=== PATIENT | female | born 2000 | race Caucasian/White ===

== ENCOUNTER 2021-05-02 07:54 | Emergency (ER) | payer SELFPAY ==
[2021-05-02 08:00] VITALS: BP 115/66; PULSE 69; RESP 18; O2SAT 96
--- NOTE | 2021-05-02 08:41 | ED.HEATRA ---
HPI - Head Injury General Chief complaint: Head Injury Stated complaint: HI Time Seen by Provider: 05/02/21 08:28 Source: patient History of Present Illness HPI Narrative: Patient presents after a head injury. Reports injury occurred approximately 2 to 2-1/2 hours ago. It was a box of so fell on the top of her head. She felt a little lightheaded but she denies any loss of consciousness she denies falling to the ground. She continued to work but felt a little lightheaded she was concerned so came to the ER for evaluation. She also reports associated neck pain. Her primary area of pain is on the top of her head that is achy, constant, worse with palpation, no radiation. She denies any changes in vision, hearing she denies any focal numbness or weakness. She denies use of blood thinners. Related Data Allergies Allergy/AdvReac Type Severity Reaction Status Date / Time No Known Allergies Allergy Unverified 09/04/18 14:53 Review of Systems Review of Systems: CONSTITUTIONAL: Denies fever, chills, or sweats. EYES: Denies visual changes, redness, or discharge. ENT: Denies rhinorrhea, congestion, sore throat, or otalgia. CARDIOVASCULAR: Denies chest pain, palpitations, or edema. RESPIRATORY: Denies cough or dyspnea. GASTROINTESTINAL: Denies abdominal pain, nausea, vomiting, or diarrhea. GENITOURINARY: Denies dysuria or hematuria. SKIN: Denies rash or itching. MUSCULOSKELETAL: Denies back pain, joint pain, or myalgia. NEUROLOGIC: Denies numbness, dizziness, or weakness. PSYCHIATRIC: Denies anxiety or depression. All systems reviewed & are unremarkable except as noted in HPI and below Exam Narrative: GENERAL: Well-appearing, well-nourished, and in no acute distress. HEAD: Normocephalic, atraumatic, no edema. EYES: PERRLA and EOMI. ENT: Nares clear, no rhinorrhea or epistaxis. Mucous membranes moist. No dental fracture NECK: Supple. No masses. No midline neck pain EXTREMITIES: Normal range of motion. No edema. SKIN: Warm, dry, no rash. NEURO: Nerves II through XII are intact patient has 5 out of 5 strength in all extremities sensation intact to light touch in all extremities alert and oriented x3. PSYCH: Normal mood and affect. Course Vital Signs Vital signs: Vital Signs Pulse Rate 69 05/02/21 08:00 Respiratory Rate 18 05/02/21 08:00 Blood Pressure 115/66 05/02/21 08:00 Pulse Oximetry 96 05/02/21 08:00 Pulse Rate 69 05/02/21 08:00 Respiratory Rate 18 05/02/21 08:00 Blood Pressure 115/66 05/02/21 08:00 Pulse Oximetry 96 05/02/21 08:00 MDM - Head Injury MDM Narrative Medical decision making narrative: H&P as above, vss, pt looks clinically well, exam without focal neurological deficits,labs/img considered, symptomatic relief available as needed, on reevaluation pt continues to looks clinically well. Suspect mild concussion, dns intracranial hemorrhage, fracture, cord compromise. plan to tx/monitor as op w/ pcm f/u findings/plan discussed with pt, pt agree/comfortable with plan, return precautions given Discharge Plan Discharge Clinical Impression: Concussion Qualifiers: Encounter type: initial encounter Loss of consciousness presence/duration: without LOC Qualified Code(s): S06.0X0A - Concussion without loss of consciousness, initial encounter Headache Qualifiers: Headache type: unspecified Headache chronicity pattern: unspecified pattern Intractability: not intractable Qualified Code(s): R51.9 - Headache, unspecified Patient Disposition: Home, Self-Care Condition: Improved Instructions: Antibiotic Form, Concussion (ED), Post Concussion Syndrome (ED) Additional Instructions: Please return if your symptoms worsen or fail to improve. If you develop a fever, can not eat/drink anything or if you have any other concerns. Follow-up/Referrals: PHYSICIAN,DIETICIAN [Primary Care Provider] - Time of Disposition: 08:44
== END 2021-05-02 09:01 | disposition home or self-care (01) ==
PROVIDERS: Emergency Provider Emergency Medicine
DX: S06.0X0A Concussion without loss of consciousness, initial encounter (principal); W22.8XXA Striking against or struck by other objects, initial encounter
CPT/HCPCS: 99283

== ENCOUNTER 2021-10-21 09:22 | Emergency (ER) | payer OTHER, SELFPAY ==
--- NOTE | 2021-10-21 09:24 | ED.NAVMDI ---
HPI - Nausea/Vomiting/Diarrhea General Chief complaint: Abdominal Pain Stated complaint: abdom pain nause Time Seen by Provider: 10/21/21 09:24 Source: patient, family and RN notes reviewed History of Present Illness HPI Narrative: Patient is a 20-year-old female who presents the urgent care with her grandmother with complaints of lower right abdominal pain with nausea. Patient states that started at 730 this morning and she forced herself to vomit assuming it may have been something she ate . Patient states that the last time she had the symptoms it was related to a urinary tract infection. Patient denies of any frequent urinary tract infections. Denies of any urinary symptoms such as requested, dysuria urgency. States that her last menstrual cycle was 1 week ago and denies of any history of ovarian cysts. No other acute complaints. No acute distress noted. Patient aware of the plan of care. Some parts of this dictation were generated by voice recognition software and may contain typographical and/or grammatical inaccuracies. Related Data Home Medications Medication Instructions Recorded Confirmed desvenlafaxine 50 mg PO DAILY 10/21/21 10/21/21 Allergies Allergy/AdvReac Type Severity Reaction Status Date / Time No Known Allergies Allergy Verified 10/21/21 09:31 Review of Systems Review of Systems: CONSTITUTIONAL: Denies fever, chills, or sweats. EYES: Denies visual changes, redness, or discharge. ENT: Denies rhinorrhea, congestion, sore throat, or otalgia. CARDIOVASCULAR: Denies chest pain, palpitations, or edema. RESPIRATORY: Denies cough or dyspnea. GASTROINTESTINAL: Reports of lower right abdominal disc with nausea and one episode of vomiting GENITOURINARY: Denies dysuria or hematuria. SKIN: Denies rash or itching. MUSCULOSKELETAL: Denies back pain, joint pain, or myalgia. NEUROLOGIC: Denies headache, numbness, or weakness. All other systems reviewed are negative, except as documented in HPI. PMFSH Comments At the time of my signature, I reviewed and agree with the nursing past medical, surgical, social, and family history. There is no relevant family history pertinent to the patient complaint. Exam Narrative: GENERAL: This is a well-nourished, well-developed patient, in no apparent distress. HEAD: normocephalic, atraumatic. EYES: PERRL. Sclera clear/white. Vision is grossly intact. EARS: External ears normal NOSE: External nose normal with no obvious nasal discharge, nares without redness, no rhinorrhea. THROAT: Mucous membranes moist NECK: Neck supple CARDIOVASCULAR: Regular rate and rhythm without murmurs, gallops, or rubs. RESPIRATORY: Clear to auscultation. Breath sounds equal bilaterally. No wheezes, rales, or rhonchi. GASTROINTESTINAL: Abdomen soft, moderate diffuse lower abdominal tenderness more intense to the right, nondistended. Bowel sounds are hypoactive. SKIN: warm, intact with no suspicious lesions or rash, good texture and turgor. NEURO: awake, alert, and oriented to person, place and time. There were no obvious focal neurologic abnormalities. EXTREMITIES: No clubbing, cyanosis, or edema. BACK: Negative bilateral CVA tenderness Course Course Level of Care: Express Care Visit Vital Signs Vital signs: Vital Signs Temperature 98.7 F 10/21/21 09:30 Pulse Rate 76 10/21/21 09:30 Respiratory Rate 16 10/21/21 09:30 Blood Pressure 140/71 10/21/21 09:30 Pulse Oximetry 100 10/21/21 09:30 Temperature 98.7 F 10/21/21 09:30 Pulse Rate 76 10/21/21 09:30 Respiratory Rate 16 10/21/21 09:30 Blood Pressure 140/71 10/21/21 09:30 Pulse Oximetry 100 10/21/21 09:30 Reviewed Transfer Transfered to: [facility]: Other (Private car) Transfer rationale: Abdominal pain, nausea, vomiting Accepting physician: Dr. Amador [facility] - Nausea/Vomiting/Diarrhea [facility] Narrative Medical decision making narrative: Patient was unable to provide a urine sample. Advised the
[2021-10-21 09:30] VITALS: BP 140/71; PULSE 76; RESP 16; TEMP 37.1; O2SAT 100
== END 2021-10-21 10:00 | disposition short-term general hospital (02) ==
PROVIDERS: Emergency Provider Nurse Practitioner Family
DX: R10.31 Right lower quadrant pain (principal)
CPT/HCPCS: 99212; G0463

== ENCOUNTER 2021-10-21 10:44 | Day surgery (SDC) | payer OTHER, SELFPAY ==
[2021-10-21] VITALS (10 sets, daily range): BP systolic 105–132; BP diastolic 60–83; PULSE 81–123; RESP 16–24; TEMP 36.4–37.4; O2SAT 100
--- NOTE | ~2021-10-21 | CT_ITS ---
EXAMINATION: CT abdomen pelvis w con DATE: 10/21/2021 12:34 INDICATION: Right lower quadrant abdominal pain. TECHNIQUE: Computed tomography (CT) of the abdomen and pelvis was performed with 100 mL Omnipaque 350 intravenous contrast. Automated exposure control and iterative reconstruction technique were employe d. The dose-length product was 221.38 mGy-cm. COMPARISON: None. FINDINGS: The visualized portions of the lung bases are clear without pneumonia or pleural effusion. The heart size is normal. No pericardial effusion. The liver, gallbladder, spleen, pancreas, adrenal glands, and kidneys are normal. In the light right lower quadrant, there is wall thickening of loops of closely opposed small bowel with a network of fistulas between the small bowel, cecum, and appendi x. There is an appendicolith in the appendix, which is fluid-filled and dilated to 9 mm. There are no pathologically enlarged lymph nodes. There is no free intraperitoneal fluid. 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 IMPRESSION: 1. Wall thickening of distal small bowel with fistulas involving the small bowel, cecum, and appendix , likely Crohn disease. 2. Fluid-filled appendix measuring 9 mm with appendicolith, consistent with appendicitis, which may b e secondary to Crohn disease and/or luminal occlusion from the appendicolith. Reviewed, dictated and finalized at location A. IMPRESSION: 1. Wall thickening of distal small bowel with fistulas involving the small gallito l, cecum, and appendix, likely Crohn disease. 2. Fluid-filled appendix measuring 9 mm with appendicolith, consistent with william endicitis, which may be secondary to Crohn disease and/or luminal occlusion fro m the appendicolith.
--- NOTE | 2021-10-21 11:04 | ED.ABDPAIN ---
HPI - Abdominal Pain General Chief Complaint: Abdominal Pain <JEZ Corcoran Last Filed: 10/21/21 14:49> Stated Complaint: abd pain <JEZ Corcoran Last Filed: 10/21/21 14:49> Time Seen by Provider: 10/21/21 10:54 <JEZ Corcoran Last Filed: 10/21/21 14:49> History of Present Illness HPI narrative: 20-year-old healthy female here with some sharp, lower abdominal pain that came on today and has been progressing in nature since onset. The pain is associated with some anorexia, nausea and vomiting nonbloody, nonbilious emesis today. She states it began in her right lower quadrant and has since migrated over to her left lower quadrant. She states the pain is worse with movement, and states the car ride over here was difficult due to all the bumps in the road. She denies fevers, blood in her stool, dysuria, hematuria, vaginal bleeding, vaginal discharge. She is currently sexually active, and her last menstrual cycle was last week and was normal for her. Last bowel movement was this morning and it was nonbloody, although patient states she has had chronic issues with intermittent diarrhea and constipation for a while . Last p.o. intake at 930 today. <JEZ Corcoran Last Filed: 10/21/21 14:49> Related Data Home Medications: Home Medications Medication Instructions Recorded Confirmed desvenlafaxine 50 mg PO DAILY 10/21/21 10/21/21 norgestimate-ethinyl estradiol 1 tablet PO DAILY 10/21/21 10/21/21 <JEZ Corcoran Last Filed: 10/21/21 14:49> Allergies/Adverse Reactions: Allergies Allergy/AdvReac Type Severity Reaction Status Date / Time No Known Allergies Allergy Verified 10/21/21 14:29 <JEZ Corcoran Last Filed: 10/21/21 14:49> Review of Systems Review of Systems: Gen.: Denies fevers or chills Eyes: Denies eye pain or visual change ENT: Denies congestion Respiratory: Denies shortness of breath or cough CV: Denies chest pain or palpitations GI: Reports abdominal pain, nausea, vomiting. : denies burning, urgency, frequency or hematuria Musculoskeletal: Denies back pain or muscle pain Neuro: Denies numbness, tingling, weakness or focal weakness Skin: Denies rash Except as documented, all other systems reviewed and negative <Bushra Balbuena PA-C - Last Filed: 10/21/21 14:49> Exam Narrative: APPEARANCE: Well appearing, no pain in distress, well-nourished. Head normocephalic and atraumatic. EYES: PERRLA/EOMI, conjunctivae clear NOSE: No nasal drainage EARS: External ear normal in appearance THROAT: Oropharynx is clear. Mucous membranes are moist. NECK: Supple. No adenopathy, no masses. RESPIRATORY: Airway patent, respirations nonlabored. Clear to auscultation bilaterally, no rales, rhonchi, wheezing. CARDIOVASCULAR: Regular rate and rhythm without murmurs, rubs, or gallops. ABDOMINAL: Normoactive bowel sounds. Tender to palpation in right lower quadrant and left lower quadrant with some guarding. Soft, nondistended. No rebound tenderness. MUSCULOSKELETAL: Extremities are warm and well-perfused. Moves all extremities well. No edema. NEURO: Normal speech. No focal neurologic deficits. SKIN:: Skin is warm and dry. No rashes. PSYCHIATRIC: Normal affect/mood. <Bushra Balbuena PA-C - Last Filed: 10/21/21 14:49> Course ACCOUNTING TUTOR/PA Physician Supervision I did not see this patient but the care plan was discussed with me, labs and imaging reviewed. I agree with the documentation as above <Earl Amador MD - Last Filed: 10/21/21 15:04> Consultations Consultation #1: Dr. Patel, general surgery, will take patient to the OR today. Will start Zosyn in the ED. <Bushra Balbuena PA-C - Last Filed: 10/21/21 14:49> Date: 10/21/21 <Bushra Balbuena PA-C - Last Filed: 10/21/21 14:49> Time: 13:14 <Bushra Balbuena PA-C - Last Filed: 10/21/21 14:49> Vital Sig
[2021-10-21 11:20] LABS: Basophils Percent Auto 0.1 % (0.2-1.2); Hematocrit 39.2 % (37.0-47.0); Immature Granulocyte Absolute 0.04 K/mm3 (0.00-0.031); Immature Granulocyte Percent A 0.3 % (0-0.5); Lymphocytes Percent Auto 9.5 % (18.3-44.2); Mean Corpuscular HGB Conc 33.2 g/dl (32-36); Mean Corpuscular Hemoglobin 30.4 pg (26-34); Mean Corpuscular Volume 91.8 fl (80-100); Mean Platelet Volume 9.1 fl (7.4-10.4); Monocytes Absolute Auto 0.6 K/mm3 (0.1-0.6); Monocytes Percent Auto 4.8 % (2.6-8.5); Neutrophils Absolute Auto 10.7 K/mm3 (1.3-6.7); Neutrophils Percent Auto 85.3 % (45.5-73.1); Platelet Count Result 273 k/mm3 (150-375); Red Blood Count 4.27 M/mm3 (4.2-5.4); Red Cell Distribution Width 12.1 % (11.5-14.5); White Blood Count 12.6 K/mm3 (4.5-10.0)
[2021-10-21 11:30] LABS: Alanine Aminotransferase 17 U/L (4-35); Albumin Level 4.5 g/dL (3.5-5.1); Alkaline Phosphatase 45 U/L (38-126); Anion Gap 5 mmol/L (8-16); Aspartate Amino Transferase 26 U/L (14-36); Bilirubin,Total 1.4 mg/dL (0.2-1.3); Blood Urea Nitrogen 10 mg/dL (7-17); Calcium 8.2 mg/dL (8.4-10.2); Carbon Dioxide 27 mmol/L (22-30); Chloride 102 mmol/L (98-107); Estimated CRCL calculation 118 ml/min; Estimated Glomerular Filt Rate > 60; Glucose 103 mg/dL (65-110); Lipase 38 U/L (23-300); Potassium 3.6 mmol/L (3.4-5.0); Sodium 134 mmol/L (137-145)
[2021-10-21] MEDS: ONDANSETRON INJ 4 MG/2 ML VIAL IV PUSH (11:42)
[2021-10-21] MEDS: SODIUM CHLORIDE 0.9% IV 500 ML 999 ML IV CONT (11:47)
[2021-10-21 12:29] LABS: Add Urine Microscopic? YES; Appearance Urine Cloudy (Clear); Bacteria Urine Trace /hpf; Bilirubin Urine Negative (Negative); Blood Urine 1+ (Negative); Color Urine Yellow (Yellow); Glucose Urine UA Negative (Negative); Ketones Urine 1+ mg/dL (Negative); Leukocyte Esterase Ur 2+ LEU/UL (Negative); Mucus Urine Heavy /lpf; Nitrate Urine Positive (Negative); Protein Urine Negative (Negative); Specific Grav Ur 1.016 (1.001-1.035); Squamous Epithelial Cell Urine Many /hpf (Few); Urobilinogen Urine Negative mg/dL (<2.0); WBC Urine 51-75 /hpf
[2021-10-21] MEDS: PIPERACILLIN/TAZOBACTAM SOD 4.5 GM in SODIUM CHLORIDE 0.9% IV 100 ML 200 ML IVPB (13:36)
--- NOTE | 2021-10-21 14:19 | PM.IMHP ---
H&P: HPI History of Present Illness Date/Time: 10/21/21 14:19 Pt is a 20 y/o F presenting c severe RLQ abd pain since this am. Pt reports pain is sharp, constant and worse c movt. Pt reports assoc nausea, anorexia. Pt reports pain does radiate toward LLQ. Pt reports similar episodes in the past although much less severe. Chief Complaint: acute appendicitis Review of Systems Constitutional: Constitutional: Reports anorexia, Denies chills, Reports fatigue, Denies fever(s), Denies headache(s), Reports lethargy, Denies malaise, Denies night sweats, Reports poor appetite, Reports weakness, Denies weight gain and Denies weight loss Eyes: Eyes: Reports no additional eye complaints ENT: Reports system reviewed and no additional complaints, except as documented Cardiovascular: Cardiovascular: Reports no additional cardiovascular complaints Respiratory: Respiratory: Reports no additional respiratory complaints Gastrointestinal: Gastrointestinal: Reports as per HPI, Reports abdominal pain, Denies belching, Denies bloating, Reports constipation, Denies GI cramping, Denies dyspepsia, Reports nausea and Denies vomiting Genitourinary: Genitourinary: Reports no additional female genitourinary complaints Musculoskeletal: Musculoskeletal: Reports no additional musculoskeletal complaints Integumentary/Breasts: Skin/Breast: Reports system reviewed and no additional complaints, except as docu Neurologic: Reports system reviewed and no additional complaints, except as documented Psychiatric: Psychiatric: Reports no additional psychiatric complaints Endocrine: Endocrine: Reports no additional endocrine complaints Hematologic/Lymphatic: Hematologic/Lymphatic: Reports no additional hematologic/lymphatic complaints Allergic/Immunologic: Allergic/Immunologic: Reports no additional allergic/immunologic complaints PMFSH Comments PMH - UTI years ago Surgical history - none FH - no IBD, biliary dz SH - no tobacco Meds Home Medications and Allergies Home Medications Medication Instructions Recorded Confirmed Type desvenlafaxine 50 mg PO DAILY 10/21/21 10/21/21 History norgestimate-ethinyl estradiol 1 tablet PO DAILY 10/21/21 10/21/21 History Allergies Allergy/AdvReac Type Severity Reaction Status Date / Time No Known Allergies Allergy Verified 10/21/21 09:31 Vital Signs Vital Signs - 24 hr 10/21/21 10:53 Temperature 36.6 C Pulse Rate 92 Respiratory Rate 18 Blood Pressure 124/65 Pulse Oximetry 100 Exam Const: General: cooperative, healthy appearing, well developed, acute distress mild and uncomfortable Nutritional Appearance: average body habitus Orientation/consciousness: patient oriented x3 Limitations: no limitations HENMT: Head: normal to inspection, normocephalic and atraumatic Ears: hearing grossly normal bilaterally General nose exam: Normal external nose present Face and sinus: normal facial exam Mouth: Yes Normal oral and palatal mucosa present and Yes moist mucous membranes Throat: posterior oropharynx normal Eyes: General: appearance normal, both eyes and all related structures Pupils: Equal, round and reactive pupils present EOM: EOMs intact bilaterally Neck: Neck: normal visual inspection, full ROM and no lymphadenopathy Chest: Chest palpation & inspection: normal inspection of the chest Resp: Effort & Inspection: normal respiratory effort Auscultation: clear to auscultation bilaterally Cardio: Jugular venous distension: no JVD Rate: regular rate Rhythm: regular rhythm GI: Inspection: normal to inspection and distended GI Palp: Yes abdominal tenderness, Yes Soft to palpation, Yes Firmness to palpation present (GI), Yes Tenderness to palpation present (GI) and Yes Guarding due to palpation present (GI) Skin: General skin exam: normal color and no rashes or lesions noted Neuro: General: patient oriented x3 and CN's II-XI intact bilaterally Extrem: General: normal to inspection and full
--- NOTE | 2021-10-21 14:27 | WPDHPUPDATE1 ---
History and Physical Update Update Date/Time: 10/21/21 14:27 History and Physical has been reviewed, including an updated exam of the patient. There are NO changes in the patient's condition. Risks, benefits, and alternatives have been discussed and questions answered. Patient agrees to proceed with procedure.
[2021-10-21] MEDS: LACTATED RINGERS 1,000 ML 30 ML IV CONT ×2 (14:30→16:12)
[2021-10-21] MEDS: fentaNYL CITRATE INJ (*CRX) 100 MCG/2 ML VIAL 50 MCG IV PUSH (14:50)
--- NOTE | 2021-10-21 16:25 | P.OP_ITS ---
Procedure Note - Detailed Date of Procedure 10/21/21 Pre-op Diagnosis acute appendicitis Post-op Diagnosis Same Procedure Performed laparoscopic appendectomy Surgeon Tasha Patel MD Anesthesia General Indications 20-year-old female presenting to the emergency department with acute appendicitis Findings acute uncomplicated appendicitis Description of Procedure The patient was taken to the operating room and placed in the supine position. After adequate induction of general anesthesia, the patient was prepped and draped in the normal sterile fashion. A time-out was then done to verify the patient's identity, as well as the procedure being performed. I began by making a 5 mm incision in the infraumbilical region, through this a Veress needle was placed in the peritoneal cavity. CO2 gas was then insufflated and after adequate pneumoperitoneum was achieved the Veress needle was removed. Then placed a 5 mm Optiview trocar under direct visualization into the peritoneal cavity. I then insufflated through this trocar site and the endoscope was placed into the trocar. Under direct visualization, placed 2 further 5 mm suprapubic port as well as an additional 12 mm port in the left lower abdomen. At this point identified the cecum, I retracted the cecum both medially and superiorly allowing me to expose the appendix. The appendix was noted to be very dilated and inflamed. There was no obvious perforation noted. The appendix was noted to be very adherent to the right lateral sidewall as well as the ileum. I was able to bluntly dissect the appendix from these adhesions. I then was able to locate the base of the appendix with the cecum. I created a window with the [place] dissector between the appendix itself and the mesoappendix. I then transected the mesoappendix with a white vascular staple load. The Endo-CORAZON was then reloaded with a blue staple load and I transected the base of the appendix. Once the specimen was completely detached, an endo- pouch was placed into the 12 mm port site and the specimen was removed through the endo-pouch. The appendiceal specimen will be sent to pathology for further review. I then copiously irrigated the right lower quadrant. Hemostasis was noted at both staple lines no other pathology was seen in this area. I then moved the camera to the suprapubic port to check our its port of entry. No iatrogenic injury or other pathology was noted in the upper abdomen. I then closed the 12 mm port site with a Chaz code and 0 Vicryl suture under direct visualization. At this point, the abdomen was desufflated and all ports were r emoved. All port sites were closed with 4 Monocryl subcuticular suture. Dermabond was placed on all wounds. The patient tolerated the procedure well and was extubated in the operating room postop. She will be sent to the recovery room in stable condition. Estimated Blood Loss 5 Drains No Packing No Pathology Yes Complications No immediate complications Condition Stable Disposition PACU
[2021-10-21] MEDS: fentaNYL CITRATE INJ (*CRX) 100 MCG/2 ML VIAL 25 MCG IV PUSH ×2 (16:38→16:40)
[2021-10-21] MEDS: oxyCODONE HCL (*CRX) 5 MG TAB IR PO (17:23)
== END 2021-10-21 18:14 | disposition home or self-care (01) ==
LOC: ANHED 13:13 → ANHSURGERY 13:28
PROVIDERS: Physician Assistant; Emergency Provider Emergency Medicine; PCP Family Medicine; Visit Provider Surgery
PROC: 0DTJ4ZZ Resection of Appendix, Percutaneous Endoscopic Approach (ICD-10-PCS; CPT 44970; principal; 2021-10-21 16:00)
DX: K35.30 Acute appendicitis with localized peritonitis, without perforation or gangrene (principal)
CPT/HCPCS: 44970; 36415; 74177; 80053; 81001; 81025; 83690; 85025; 87077; 87086; 87186; 88304; 96361; 96374; 99285; A9270; J0330; J1100; J2250; J2405; J2543; J2704; J3010; J7030; J7040; J7120; Q9967

== ENCOUNTER 2021-10-27 19:05 | Emergency (ER) | payer OTHER, SELFPAY ==
[2021-10-27 19:12] VITALS: BP 122/64; PULSE 77; RESP 14; TEMP 37.3; O2SAT 100
--- NOTE | 2021-10-27 19:13 | ED.GENADULT ---
HPI - General Adult General Stated complaint: lower back pain near surgical site Mode of arrival: ambulatory Limitations: no limitations Related Data Home Medications Medication Instructions Recorded Confirmed desvenlafaxine 50 mg PO DAILY 10/21/21 10/21/21 norgestimate-ethinyl estradiol 1 tablet PO DAILY 10/21/21 10/21/21 Allergies Allergy/AdvReac Type Severity Reaction Status Date / Time No Known Allergies Allergy Verified 10/21/21 14:29 Review of Systems Review of Systems: CONSTITUTIONAL: Denies malaise, chills, sweats, or fever. EYES: Denies visual changes, redness, or discharge. ENT: Denies rhinorrhea, congestion, sinus pain, otalgia or sore throat. CARDIOVASCULAR: Denies chest pain, palpitations, or edema. RESPIRATORY: Denies cough or dyspnea. GASTROINTESTINAL: Denies abdominal pain, nausea, vomiting, diarrhea, bloody, or mucous stools. GENITOURINARY: Denies dysuria or hematuria. SKIN: Denies rash or itching. MUSCULOSKELETAL: Denies back pain, joint pain, or myalgia. NEUROLOGIC: Denies numbness, weakness, or headache. PSYCHIATRIC: Denies anxiety or depression. All systems reviewed & are unremarkable except as noted in HPI and below PMFSH Comments At time of signature, agree with nursing past medical, surgical, social and family history. There is no relevant family history pertinent to the presenting complaint Exam Narrative: GENERAL: Well-appearing, well-nourished, and in no acute distress. HEAD: Normocephalic, atraumatic. EYES: PERRLA, sclera clear, and EOMI. No nystagmus. ENT: Nares clear, turbinates pink, no rhinorrhea or epistaxis. Mucous membranes moist. TM pearly mayfield with sharp light reflex bilaterally; no tragal tenderness. Oropharynx without erythema or lesions. Tonsils not enlarged and without exudate. NECK: Supple. No lymphadenopathy. No jugular venous distension, thyromegaly, or carotid bruits. Carotids were easily palpable bilaterally. CHEST: No respiratory distress. Clear to auscultation. No bony deformities, no asymmetry. Speaks in full sentences. HEART: Regular rate and rhythm. No murmur heard. Normal peripheral pulses. ABDOMEN: Soft, nontender, nondistended, normal active bowel sounds, no palpable masses. EXTREMITIES: Normal range of motion. No edema. Normal strength and sensation. SKIN: Warm, dry, no visible rash. NEURO: Alert and oriented x3. No focal deficits. Cranial nerves II through XII grossly intact PSYCH: Normal mood and affect Course Course Emergency Course: Patient is aware of diagnosis, understands and agrees to treatment plan. Anticipatory guidance given. Patient agrees to follow-up as directed and is aware of reasons to seek care at the emergency department. Portions of this record may have been created with voice recognition software Level of Care: Express Care Visit Vital Signs Vital signs: Reviewed. Medical Decision Making MDM Narrative Medical decision making narrative: Exam findings and imaging show no acute concerns or changes; patient is non-toxic appearing and is in no distress. Patient is appropriate for outpatient treatment and follow-up. Critical Care Time Critical Care Time Critical Care Time: No Discharge Plan Discharge Prescriptions: No Action desvenlafaxine 50 mg Tablet Extended Release 24 Hr 50 mg PO DAILY RF: 0 norgestimate-ethinyl estradiol 0.25-35 mg-mcg Tablet 1 tablet PO DAILY RF: 0 hydrocodone-acetaminophen 5-325 mg tablet 1 tablet PO Q6H PRN (Reason: pain) Qty: 20 RF: 0 docusate sodium [Colace] 100 mg capsule 100 mg PO BID Qty: 20 RF: 0
[2021-10-27 19:23] VITALS: BP 122/64; PULSE 77; RESP 14; TEMP 37.3; O2SAT 100
--- NOTE | 2021-10-27 19:30 | ED.FEMALEGU ---
HPI - Female Genitourinary General Chief complaint: Urogenital-Female Stated complaint: lower back pain near surgical site Time Seen by Provider: 10/27/21 19:28 Source: patient and RN notes reviewed Mode of arrival: ambulatory Limitations: no limitations History of Present Illness HPI Narrative: 20-year-old female presents with concern for left flank pain that wraps around to the left abdomen where one of her surgical sites is. She reports on 21 October she had an emergency appendectomy. Reports while she was hospitalized she was told she may have a urinary tract infection and was supposed to be discharged on antibiotics, however she was not discharged on antibiotics. Reports she called her surgeon today who suggested she come to urgent care to be evaluated for UTI. She denies dysuria. Reports frequency. Reports she is currently on her menstrual cycle. She denies fever, body aches, chills, sweats. She denies redness, swelling, tenderness around any surgical site. MD elicited complaint: flank pain Related Data Home Medications Medication Instructions Recorded Confirmed desvenlafaxine 50 mg PO DAILY 10/21/21 10/27/21 norgestimate-ethinyl estradiol 1 tablet PO DAILY 10/21/21 10/27/21 Allergies Allergy/AdvReac Type Severity Reaction Status Date / Time No Known Allergies Allergy Verified 10/21/21 14:29 Review of Systems Review of Systems: CONSTITUTIONAL: Denies malaise, chills, sweats, or fever. CARDIOVASCULAR: Denies chest pain, palpitations, or edema. RESPIRATORY: Denies cough or dyspnea. GASTROINTESTINAL: Reports left lower abdominal pain. Denies nausea, vomiting, diarrhea GENITOURINARY: Reports frequency, and flank pain. Denies dysuria urgency, suprapubic pressure. SKIN: Denies rash or itching. MUSCULOSKELETAL: Denies back pain or myalgia. All systems reviewed & are unremarkable except as noted in HPI and below PMFSH Comments At time of signature, agree with nursing past medical, surgical, social and family history. There is no relevant family history pertinent to the presenting complaint Exam Narrative: GENERAL: Well-appearing, well-nourished, and in no acute distress. HEAD: Normocephalic. EYES: PERRLA, conjunctivae clear. NECK: Supple. No lymphadenopathy CHEST: Clear to auscultation. No respiratory distress. HEART: Regular rate and rhythm. ABDOMEN: Soft, nontender upon palpation, nondistended, normal active bowel sounds, no palpable or pulsatile masses, no guarding. Left CVA tenderness. SKIN: Warm, dry, no rash. 3 abdominal laparoscopic incisions noted without tenderness, erythema, edema, drainage, Dermabond intact NEURO: Alert and oriented x3. PSYCH: Normal mood and affect Course Course Emergency Course: Patient is aware of diagnosis, understands and agrees to treatment plan. Anticipatory guidance given. Patient agrees to follow-up as directed and is aware of reasons to seek care at the emergency department. Portions of this record may have been created with voice recognition software Level of Care: Express Care Visit Vital Signs Vital signs: Vital Signs Temperature 99.2 F 10/27/21 19:12 Pulse Rate 77 10/27/21 19:12 Respiratory Rate 14 10/27/21 19:12 Blood Pressure 122/64 10/27/21 19:12 Pulse Oximetry 100 10/27/21 19:12 Temperature 99.2 F 10/27/21 19:23 Pulse Rate 77 10/27/21 19:23 Respiratory Rate 14 10/27/21 19:23 Blood Pressure 122/64 10/27/21 19:23 Pulse Oximetry 100 10/27/21 19:23 Reviewed. MDM - Female Genitourinary MDM Narrative Medical decision making narrative: Exam findings and UA show no acute concerns or changes; patient is non-toxic appearing and is in no distress. Patient is appropriate for outpatient treatment and follow-up. Differential Diagnosis Differential diagnosis: Likely urinary tract infection and cystitis Lab Data Labs: Urine Glucose Negative Reference Range: Negative
== END 2021-10-27 19:39 | disposition home or self-care (01) ==
PROVIDERS: Emergency Provider Nurse Practitioner
DX: N39.0 Urinary tract infection, site not specified (principal)
CPT/HCPCS: 81003; 87077; 87086; 87186; 99213; G0463

== ENCOUNTER 2021-11-24 19:05 | Emergency (ER) | payer OTHER, SELFPAY ==
--- NOTE | 2021-11-24 19:11 | ED.FEMALEGU ---
HPI - Female Genitourinary General Chief complaint: Urogenital-Female Stated complaint: Urinary Problem Time Seen by Provider: 11/24/21 19:12 Source: patient and RN notes reviewed History of Present Illness HPI Narrative: Patient is a 20-year-old female who presents the urgent care with complaints of dysuria, left low back pain and urinary frequency. Patient states that it started yesterday. Patient was recently seen at our facility on October 27 with E. coli in the urine. Patient was initially on Cipro and the medication was changed. Patient denies of fever, nausea, vomiting. Denies abdominal pain. No other acute complaints. No acute distress noted. Patient aware of the plan of care. Some parts of this dictation were generated by voice recognition software and may contain typographical and/or grammatical inaccuracies. Related Data Home Medications Medication Instructions Recorded Confirmed desvenlafaxine 50 mg PO DAILY 10/21/21 11/24/21 norgestimate-ethinyl estradiol 1 tablet PO DAILY 10/21/21 11/24/21 Allergies Allergy/AdvReac Type Severity Reaction Status Date / Time No Known Allergies Allergy Verified 11/24/21 19:18 Review of Systems Review of Systems: CONSTITUTIONAL: Denies fever, chills, or sweats. EYES: Denies visual changes, redness, or discharge. ENT: Denies rhinorrhea, congestion, sore throat, or otalgia. CARDIOVASCULAR: Denies chest pain, palpitations, or edema. RESPIRATORY: Denies cough or dyspnea. GASTROINTESTINAL: Denies abdominal pain, nausea, vomiting, or diarrhea. GENITOURINARY: Reports of dysuria, urinary urgency SKIN: Denies rash or itching. MUSCULOSKELETAL: Reports of left low back pain NEUROLOGIC: Denies headache, numbness, or weakness. All other systems reviewed are negative, except as documented in HPI. PMFSH Comments At the time of my signature, I reviewed and agree with the nursing past medical, surgical, social, and family history. There is no relevant family history pertinent to the patient complaint. Exam Narrative: GENERAL: This is a well-nourished, well-developed patient, in no apparent distress. HEAD: normocephalic, atraumatic. EYES: PERRL. Sclera clear/white. Vision is grossly intact. EARS: External ears normal NOSE: External nose normal with no obvious nasal discharge, nares without redness, no rhinorrhea. THROAT: Mucous membranes moist NECK: Neck supple CARDIOVASCULAR: Regular rate and rhythm without murmurs, gallops, or rubs. RESPIRATORY: Clear to auscultation. Breath sounds equal bilaterally. No wheezes, rales, or rhonchi. GASTROINTESTINAL: Abdomen soft, non-tender, nondistended. SKIN: warm, intact with no suspicious lesions or rash, good texture and turgor. NEURO: awake, alert, and oriented to person, place and time. There were no obvious focal neurologic abnormalities. EXTREMITIES: No clubbing, cyanosis, or edema. BACK: Left CVA tenderness Course Course Level of Care: Express Care Visit Vital Signs Vital signs: Vital Signs Temperature 99.2 F 11/24/21 19:12 Pulse Rate 82 11/24/21 19:12 Respiratory Rate 18 11/24/21 19:12 Blood Pressure 158/89 H 11/24/21 19:12 Pulse Oximetry 100 11/24/21 19:12 Temperature 99.2 F 11/24/21 19:12 Pulse Rate 82 11/24/21 19:12 Respiratory Rate 18 11/24/21 19:12 Blood Pressure 158/89 H 11/24/21 19:12 Pulse Oximetry 100 11/24/21 19:12 Reviewed-patient is informed that they may have pre-hypertension or hypertension based on a blood pressure reading in the department. I recommend the patient call the primary care provider listed on their discharge instructions or a physician of their choice this week to arrange follow-up for further evaluation of possible pre-hypertension or hypertension. MDM - Female Genitourinary MDM Narrative Medical decision making narrative: Reviewed lab results with patient. Urinalysis is likely indicative of a urinary tract infection. Advised the patient to complete the oral antibioti
[2021-11-24 19:12] VITALS: BP 158/89; PULSE 82; RESP 18; TEMP 37.3; O2SAT 100
== END 2021-11-24 19:38 | disposition home or self-care (01) ==
PROVIDERS: Emergency Provider Nurse Practitioner Family
DX: N39.0 Urinary tract infection, site not specified (principal)
CPT/HCPCS: 81003; 87077; 87086; 87088; 99213; G0463

== ENCOUNTER 2021-12-02 09:04 | Emergency (ER) | payer OTHER, SELFPAY ==
[2021-12-02 09:11] VITALS: BP 130/76; PULSE 116; RESP 18; TEMP 38.1; O2SAT 99
--- NOTE | 2021-12-02 09:42 | ED.GENADULT ---
HPI - General Adult General Chief complaint: Skin/Abscess/Foreign Body Stated complaint: rash Time Seen by Provider: 12/02/21 09:15 History of Present Illness HPI narrative: 20-year-old female presents to the emergency room for evaluation of a rash that began this morning. Patient states she recently has not been feeling very well, and took NyQuil last night for body aches. Woke up this morning with the pruritic to her face torso and extremities. Patient also states that she is being treated for pyelonephritis, and is 8 days into her 10-day course of Bactrim. Patient denies any back pain suprapubic pain, or dysuria. Related Data Home Medications Medication Instructions Recorded Confirmed desvenlafaxine 50 mg PO DAILY 10/21/21 11/24/21 norgestimate-ethinyl estradiol 1 tablet PO DAILY 10/21/21 11/24/21 Allergies Allergy/AdvReac Type Severity Reaction Status Date / Time No Known Allergies Allergy Verified 12/02/21 09:10 Review of Systems Review of Systems: CONSTITUTIONAL: Reports fever, body aches EYES: Denies visual changes, redness, or discharge. ENT: Denies rhinorrhea, congestion, sore throat, or otalgia. CARDIOVASCULAR: Denies chest pain, palpitations, or edema. RESPIRATORY: Denies cough or dyspnea. GASTROINTESTINAL: Denies abdominal pain, nausea, vomiting, or diarrhea. GENITOURINARY: Denies dysuria or hematuria. SKIN: Reports rash MUSCULOSKELETAL: Denies back pain, joint pain, or myalgia. NEUROLOGIC: Denies headache, numbness, dizziness, or weakness. PSYCHIATRIC: Denies anxiety or depression. Exam Narrative: GENERAL: Well-appearing, well-nourished, and in no acute distress. HEAD: Normocephalic, atraumatic. EYES: PERRLA and EOMI. ENT: Nares clear, no rhinorrhea or epistaxis. Mucous membranes moist. Oropharynx without tonsillar hypertrophy exudate or other lesions. Bilateral TMs pearly mayfield nonbulging NECK: Supple. No adenopathy or masses. No carotid bruits or JVD CHEST: Clear to auscultation. No respiratory distress. No wheezes rales or rhonchi HEART: Regular rate and rhythm. No murmur heard. Normal peripheral pulses. ABDOMEN: Soft, nontender, nondistended, normal active bowel sounds. No suprapubic tenderness EXTREMITIES: Normal range of motion. No edema. SKIN: Urticaria covering neck, torso, upper extremities, lower extremities NEURO: No focal deficits. Alert and oriented x3. PSYCH: Normal mood and affect. Course Vital Signs Vital signs: Vital Signs Temperature 38.1 C H 12/02/21 09:11 Pulse Rate 116 H 12/02/21 09:11 Respiratory Rate 18 12/02/21 09:11 Blood Pressure 130/76 12/02/21 09:11 Pulse Oximetry 99 12/02/21 09:11 Temperature 38.1 C H 12/02/21 09:11 Pulse Rate 116 H 12/02/21 09:11 Respiratory Rate 18 12/02/21 09:11 Blood Pressure 130/76 12/02/21 09:11 Pulse Oximetry 99 12/02/21 09:11 Medical Decision Making MDM Narrative Medical decision making narrative: 20-year-old female presents the emergency room for evaluation of urticaria, fever. Patient states that she has been taking Bactrim for urinary tract infection/pyelonephritis recently. Patient also states that she has been taking NyQuil last night because she was not feeling well. CBC is unremarkable. CMP shows a hyponatremia, likely due to mild dehydration. Medical Records Medical records reviewed: Yes I reviewed the external patient's medical records. Vital Signs Vital Signs: Vital Signs Temperature 38.1 C H 12/02/21 09:11 Pulse Rate 116 H 12/02/21 09:11 Respiratory Rate 18 12/02/21 09:11 Blood Pressure 130/76 12/02/21 09:11 Pulse Oximetry 99 12/02/21 09:11 Temperature 38.1 C H 12/02/21 09:11 Pulse Rate 116 H 12/02/21 09:11 Respiratory Rate 18 12/02/21 09:11 Blood Pressure 130/76 12/02/21 09:11 Pulse Oximetry 99 12/02/21 09:11 Lab Data Lab results reviewed: Yes I reviewed the patient's lab results. Result diagrams: 12/02/21 12:28 12/02/21 12:28
[2021-12-02] MEDS: SODIUM CHLORIDE 0.9% IV 1,000 ML 999 ML IV CONT ×2 (10:10→13:47)
[2021-12-02] MEDS: ACETAMINOPHEN 500 MG TABLET 1000 MG PO (10:10)
[2021-12-02] MEDS: FAMOTIDINE 20 MG/2 ML VIAL IV PUSH (10:11)
[2021-12-02] MEDS: methylPREDNISolone SOD SUCC 125 MG VIAL IV PUSH (10:11)
[2021-12-02] MEDS: diphenhydrAMINE HCl INJ 50 MG/ML VIAL 25 MG IV PUSH (10:11)
[2021-12-02 10:18] LABS: Influenza A QL RT-PCR Negative (Negative); Influenza B QL RT-PCR Negative (Negative); SARS-CoV-2 RNA PCR Negative
[2021-12-02 11:24] LABS: Appearance Urine Slightly Cloudy (Clear); Bilirubin Urine 2+ (Negative); Glucose Urine UA Negative (Negative); Ketones Urine 1+ mg/dL (Negative); Leukocyte Esterase Ur Trace LEU/UL (Negative); Nitrate Urine Negative (Negative); Protein Urine 1+ mg/dL (Negative); Specific Grav Ur 1.025 (1.001-1.035)
[2021-12-02 11:30] LABS: Add Urine Microscopic? YES; Blood Urine Trace-Intact (Negative); Color Urine Dark Yellow (Yellow)
[2021-12-02 11:46] LABS: Bacteria Urine Trace /hpf; Mucus Urine Rare /lpf; RBC Urine 0-2 /hpf (0-2); Squamous Epithelial Cell Urine Many /hpf (Few)
[2021-12-02 12:35] LABS: Basophils Percent Auto 0.2 % (0.2-1.2); Hematocrit 39.5 % (37.0-47.0); Immature Granulocyte Absolute 0.03 K/mm3 (0.00-0.031); Immature Granulocyte Percent A 0.6 % (0-0.5); Lymphocytes Absolute Auto 0.35 K/mm3 (0.9-3.2); Lymphocytes Percent Auto 6.7 % (18.3-44.2); Mean Corpuscular HGB Conc 32.9 g/dl (32-36); Mean Corpuscular Hemoglobin 29.2 pg (26-34); Mean Corpuscular Volume 88.8 fl (80-100); Mean Platelet Volume 9.3 fl (7.4-10.4); Monocytes Absolute Auto 0.1 K/mm3 (0.1-0.6); Monocytes Percent Auto 1.9 % (2.6-8.5); Neutrophils Absolute Auto 4.7 K/mm3 (1.3-6.7); Neutrophils Percent Auto 90.6 % (45.5-73.1); Platelet Count Result 159 k/mm3 (150-375); Red Blood Count 4.45 M/mm3 (4.2-5.4); Red Cell Distribution Width 12.7 % (11.5-14.5); White Blood Count 5.2 K/mm3 (4.5-10.0)
[2021-12-02 12:45] LABS: Alanine Aminotransferase 28 U/L (6-35); Alkaline Phosphatase 53 U/L (38-126); Anion Gap 10 mmol/L (8-16); Aspartate Amino Transferase 48 U/L (14-36); Bilirubin,Total 1.3 mg/dL (0.2-1.3); Blood Urea Nitrogen 6 mg/dL (7-17); Calcium 7.5 mg/dL (8.4-10.2); Carbon Dioxide 20 mmol/L (22-30); Chloride 100 mmol/L (98-107); Estimated CRCL calculation 118 ml/min; Estimated Glomerular Filt Rate > 60; Glucose 105 mg/dL (65-110); Potassium 3.8 mmol/L (3.4-5.0); Sodium 130 mmol/L (137-145)
[2021-12-02 13:30] LABS: Band Neutrophils Percent 32 % (0-6); Lymphocytes Absolute Manual 0.31 K/mm3 (1.1-4.5); Metamyelocytes Percent 1 %; Monocytes Percent Manual 2 % (3-9); Neutrophils Absolute Manual 4.73 K/mm3 (1.7-7.2); Neutrophils Percent Manual 59 % (46-73); Platelet Estimate Adequate (Adequate); Total Cells Counted 100
== END 2021-12-02 14:52 | disposition home or self-care (01) ==
PROVIDERS: Emergency Provider Nurse Practitioner Family; PCP Family Medicine
DX: B34.9 Viral infection, unspecified (principal); E86.0 Dehydration; T78.40XA Allergy, unspecified, initial encounter; Z20.822 Contact with and (suspected) exposure to COVID-19
CPT/HCPCS: 36415; 80053; 81001; 81025; 85025; 87086; 87502; 96361; 96374; 96375; 99284; A9270; C9803; J1200; J2930; J7030; U0003; U0005

== ENCOUNTER 2022-07-29 10:31 | Emergency (ER) | payer OTHER, SELFPAY ==
[2022-07-29 10:37] VITALS: BP 129/64; PULSE 72; RESP 16; TEMP 37; O2SAT 100
--- NOTE | 2022-07-29 10:54 | ED.EAR ---
HPI - Ear Problem General Chief complaint: Ear Stated complaint: ear pain Time Seen by Provider: 07/29/22 10:54 Source: patient, RN notes reviewed and old records reviewed Mode of arrival: ambulatory Limitations: no limitations History of Present Illness HPI Narrative: 21-year-old female presents to the [facility] with left ear pain for 2 days. 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 Denies any fevers, sore throat, rhinorrhea Related Data Home Medications Medication Instructions Recorded Confirmed desvenlafaxine 50 mg 50 mg PO DAILY 10/21/21 07/29/22 tablet,extended release 24 hr norgestimate 0.25 mg-ethinyl 1 tablet PO DAILY 10/21/21 07/29/22 estradiol 35 mcg tablet doxycycline hyclate 100 mg capsule 100 mg PO DAILY 07/29/22 07/29/22 Allergies Allergy/AdvReac Type Severity Reaction Status Date / Time Sulfa (Sulfonamide Allergy Swelling Verified 07/29/22 10:46 Antibiotics) Review of Systems Review of Systems: All systems reviewed & are unremarkable except as noted in HPI and below Constitutional: Constitutional: Reports no additional constitutional complaints Eyes: Eyes: Reports no additional eye complaints ENT: Reports as per HPI Cardiovascular: Cardiovascular: Reports no additional cardiovascular complaints, Denies chest pain and Denies dyspnea Respiratory: Respiratory: Reports no additional respiratory complaints, Denies chest congestion, Denies cough and Denies dyspnea Gastrointestinal: Gastrointestinal: Reports no additional gastrointestinal complaints, Denies abdominal pain, Denies nausea and Denies vomiting Musculoskeletal: Musculoskeletal: Reports no additional musculoskeletal complaints Integumentary/Breasts: Skin/Breast: Reports system reviewed and no additional complaints, except as docu Neurologic: Reports system reviewed and no additional complaints, except as documented Psychiatric: Psychiatric: Reports no additional psychiatric complaints Allergic/Immunologic: Allergic/Immunologic: Reports no additional allergic/immunologic complaints PMF Past Medical History Medical History (Updated 07/29/22 @ 18:49 by Ashely Gillette APRN) Deaf Comments At the time of my signature, I reviewed and agree with the nursing past medical, surgical, social, and family history. There is no relevant family history pertinent to the patient complaint. Exam Const: General: cooperative, healthy appearing, comfortable, no acute distress, well developed, alert and well nourished Nutritional Appearance: well nourished Orientation/consciousness: patient oriented x3 Limitations: no limitations HENMT: Head: normal to inspection Ears: external ears normal, EAC's normal and TM abnormal with fluid behind the TM on the right; not erythematous and with no loss of landmarks Face/Nose/Sinus: Normal external nose present, Normal nares present, Normal nasal mucous membranes and turbinates present and normal facial exam Face and sinus: normal facial exam Mouth: Yes Normal oral and palatal mucosa present, Yes lip normal and Yes moist mucous membranes Throat: posterior oropharynx normal and uvula midline Other: left TMJ tenderness. Eyes: General: appearance normal, both eyes and all related structures Alignment and Position: alignment normal Periorbital: periorbital findings normal Conjunctivae: conjunctivae normal Pupils: Equal, round and reactive pupils present EOM: EOMs intact bilaterally Neck: Neck: normal visual inspection, full ROM, no lymphadenopathy and no meningeal signs Chest: Chest palpation & inspection: normal inspection of the chest Resp: Effort & Inspection: normal respiratory effort and able to speak in complete sentences Auscultation: clear to auscultation bilaterally, no crackles, no rales, no rhonchi and no wheezes Cardio: Rate: regular rate Rhythm: regular rhythm Back/Spine/Pelvis: Cervical Spine: cervical ROM normal Thoracic/Lumbar
== END 2022-07-29 11:14 | disposition home or self-care (01) ==
PROVIDERS: Emergency Provider Nurse Practitioner; PCP Family Medicine
DX: H65.01 Acute serous otitis media, right ear (principal); M26.602 Left temporomandibular joint disorder, unspecified; H91.92 Unspecified hearing loss, left ear
CPT/HCPCS: 99213; G0463

== ENCOUNTER 2022-08-17 07:04 | Outpatient (CLI) | payer OTHER, SELFPAY ==
--- NOTE | ~2022-08-17 | MR_ITS ---
EXAMINATION: MR shoulder RT wo con DATE: 08/17/2022 07:39 INDICATION: Right shoulder pain, popping sensation for several years. No specific history of injury TECHNIQUE: Magnetic resonance imaging (MRI) of the right shoulder was performed without intravenous c ontrast. Sequences included axial PD-weighted FS FSE, coronal oblique PD-weighted FS FSE and T2-weigh ernst FS FSE, and sagittal oblique T2-weighted FS FSE and T1-weighted FSE. COMPARISON: None. FINDINGS: Coracoacromial arch: Minimal anterolateral downsloping of the type II acromion. Mild subacromial narrowing. Rotator cuff: Thinning of the superior cuff. Minimal abnormal signal in the critical zone of the infraspinatus and supraspinatus tendons. The subscapularis and teres minor are intact. Biceps tendon and glenoid labrum: Mild degenerative signal in the glenoid labrum. Intact long head of biceps tendon. Fluid: Moderate subacromial subdeltoid fluid. Bones/cartilage: No suspicious focal or diffuse marrow signal IMPRESSION: 1. Mild superior cuff tendinopathy. 2. Moderate subacromial subdeltoid bursitis. 3. Mild osseous outlet compromise. Reviewed, dictated and finalized at location K. [employer]
== END 2022-08-17 07:05 ==
PROVIDERS: PCP Family Medicine; Visit Provider Chiropractor
DX: M75.101 Unspecified rotator cuff tear or rupture of right shoulder, not specified as traumatic (principal); M75.51 Bursitis of right shoulder
CPT/HCPCS: 73221